=== PATIENT | female | born 1935 | race African-American/Black ===

== ENCOUNTER 2017-04-18 10:18 | Observation (INO) ==
[2017-04-18] MEDS ORDERED: ASPIRIN 325 MG TABLET PO STA ×2 (10:53→16:27)
[2017-04-18] MEDS ORDERED: ENOXAPARIN 100 MG/ML SYRINGE SUBCUT STA (10:53)
[2017-04-18] MEDS ORDERED: ASPIRIN 325 MG TABLET ONE (11:26)
[2017-04-18] MEDS ORDERED: ENOXAPARIN 80 MG/0.8 ML SYRINGE SUBCUT ONE (11:26)
[2017-04-18 11:40] LABS: Basophils # 0.1 10*3/uL (0.0-0.2); Eosinophils % 0.8 % (0.00-10.9); Hematocrit 41.5 VOL% (35.7-47.0); Immature Granulocytes % 0.2 %; Immature Granulocytes Absolute 0.01 #; Lymphocytes # 1.4 10*3/uL (1.4-4.0); Lymphocytes % 29.5 % (21.3-54.2); Mean Corpuscular HGB Conc 33.7 GM/DL (32-36); Mean Corpuscular Hemoglobin 27 PG (27-34); Mean Corpuscular Volume 79.5 FL (87-102); Mean Platelet Volume 12.1 FL (9.6-12.0); Monocytes # 0.5 10*3/uL (0.11-0.8); Monocytes % 10.6 % (1.7-12.7); Neutrophils # 2.8 10*3/uL (1.4-7.4); Neutrophils % 57.9 % (38.7-73.9); Platelet Count 180 T/CUMM (130-400); Red Blood Count 5.22 MC/CUMM (3.8-5.5); Red Cell Distribution Width 14.6 % (9.3-17.3); White Blood Count 4.8 T/CUMM (4-12)
[2017-04-18 12:05] LABS: Albumin 4.1 G/DL (3.4-5.0); Bilirubin,Total 0.8 MG/DL (0.2-1.0); Calcium 10.2 MG/DL (8.5-10.1); Osmolality,Calculated 280.3 MOS/KG (273-304); Potassium 3.7 MMOL/L (3.5-5.1); Total Protein 7.8 G/DL (6.4-8.3)
[2017-04-18] MEDS ORDERED: METOPROLOL SUCCINATE XL 25 MG TABLET PO PRN (16:27)
[2017-04-18] MEDS ORDERED: FUROSEMIDE 40 MG TABLET PO PRN (16:27)
[2017-04-18] MEDS ORDERED: NITROGLYCERIN SL 0.4 MG TABLET SL PRN (16:27)
[2017-04-18] MEDS ORDERED: POTASSIUM CHLORIDE 10 MEQ TABLET PO SCH (16:27)
[2017-04-18] MEDS: PANTOPRAZOLE 40 MG TABLET PO SCH (18:03)
[2017-04-18] MEDS: MONTELUKAST 10 MG TABLET PO SCH (22:11)
[2017-04-19 07:57] LABS: Calcium 9.6 MG/DL (8.5-10.1); Potassium 3.8 MMOL/L (3.5-5.1); Risk Ratio 2.36; VLDL CHOLESTEROL 16.2 MG/DL
[2017-04-19] MEDS ORDERED: PRAVASTATIN 40 MG TABLET PO SCH ×2 (09:00→21:00)
[2017-04-19] MEDS: CHOLECALCIFEROL 1,000 UNIT TABLET PO SCH (09:22)
[2017-04-19] MEDS: LOSARTAN 50 MG TABLET PO SCH (09:22)
[2017-04-19] MEDS: ASPIRIN EC 325 MG TABLET PO SCH ×2 (09:24→09:30)
[2017-04-19] MEDS: PANTOPRAZOLE 40 MG TABLET PO SCH (09:24)
[2017-04-19] MEDS: CYANOCOBALAMIN 100 MCG TABLET PO SCH (09:25)
[2017-04-19] MEDS: hydroCHLOROthiazide 12.5 MG CAPSULE PO SCH (09:27)
[2017-04-19] MEDS ORDERED: POTASSIUM CHLORIDE RIDER 10 MEQ in PREMIX 1 EACH IV PRN (11:12)
[2017-04-19] MEDS ORDERED: DIAZEPAM 5 MG TABLET PO ONE (11:12)
[2017-04-19] MEDS ORDERED: diphenhydrAMINE CAP 25 MG CAPSULE PO ONE (11:12)
[2017-04-19] MEDS ORDERED: MAGNESIUM SULF RIDER 2 GM in PREMIX 1 EACH IV PRN (11:12)
[2017-04-19] MEDS ORDERED: HEPARIN/NACL 0.9% 2 UNITS/ML 2,000 ML IV ONE (11:23)
[2017-04-19] MEDS ORDERED: LIDOCAINE 2%/EPI 20 ML VIAL ONE (11:23)
[2017-04-19] MEDS ORDERED: SODIUM CHLORIDE 0.45% 1,000 ML IV SCH (11:30)
[2017-04-19] MEDS ORDERED: MIDAZOLAM 2 MG/2 ML VIAL ONE (12:45)
[2017-04-19] MEDS ORDERED: fentaNYL 100 MCG/2 ML VIAL ONE (12:46)
[2017-04-19] MEDS: MONTELUKAST 10 MG TABLET PO SCH (21:36)
[2017-04-20 08:08] VITALS: BP 95/47
[2017-04-20] MEDS: PANTOPRAZOLE 40 MG TABLET PO SCH (09:35)
[2017-04-20] MEDS: LOSARTAN 50 MG TABLET PO SCH (09:35)
[2017-04-20] MEDS: CHOLECALCIFEROL 1,000 UNIT TABLET PO SCH (09:35)
[2017-04-20] MEDS: ASPIRIN EC 325 MG TABLET PO SCH (09:35)
[2017-04-20] MEDS: hydroCHLOROthiazide 12.5 MG CAPSULE PO SCH (09:36)
[2017-04-20] MEDS: CYANOCOBALAMIN 100 MCG TABLET PO SCH (09:36)
== END 2017-04-20 10:40 | disposition home or self-care (01) ==
LOC: N.ED 10:18 → N.EDINP 10:18 → SUATTDRO 13:48 → N.TELEN 16:23
PROVIDERS: ADMIT Internal Medicine Infectious Disease; ATTEND Internal Medicine
PROC: CLCCHCL (ICD-10-PCS; 2017-04-19 13:15)

== ENCOUNTER 2018-04-18 05:43 | Inpatient (IN) ==
[2018-04-11 10:40] LABS: Basophils # 0.1 10*3/uL (0.0-0.2); Basophils % 1.4 % (0.0-0.8); Eosinophils # 0.1 10*3/uL (0.0-0.87); Eosinophils % 2.8 % (0.00-10.9); Hematocrit 37.9 VOL% (35.7-47.0); Hemoglobin 12.3 GM/DL (12.0-16.0); Immature Granulocytes % 0.2 %; Immature Granulocytes Absolute 0.01 #; Lymphocytes # 1.5 10*3/uL (1.4-4.0); Lymphocytes % 34.3 % (21.3-54.2); Mean Corpuscular HGB Conc 32.5 GM/DL (32-36); Mean Corpuscular Hemoglobin 27 PG (27-34); Mean Corpuscular Volume 82.2 FL (87-102); Mean Platelet Volume 12.1 FL (9.6-12.0); Monocytes # 0.6 10*3/uL (0.11-0.8); Monocytes % 12.6 % (1.7-12.7); Neutrophils # 2.1 10*3/uL (1.4-7.4); Neutrophils % 48.7 % (38.7-73.9); Platelet Count 143 T/CUMM (130-400); Red Blood Count 4.61 MC/CUMM (3.8-5.5); Red Cell Distribution Width 14.4 % (9.3-17.3); White Blood Count 4.4 T/CUMM (4-12)
[2018-04-11 10:54] LABS: Amorphous Crystals,Urine Occasional /HPF (Few); Apearance,Urine CLEAR (Clear); Bilirubin,Urine Negative (Negative); Blood, Urine Negative (Negative); Glucose,Urine (UA) Negative (Negative); Ketones,Urine Negative (Negative); Mucus,Urine Occasional /LPF (Occasional); Nitrite,Urine Negative (Negative); Protein,Urine Negative; RBC,Urine 1 /HPF (0-4); Squamous Epithelial Cell,Urine Occasional /HPF (0-10); Urine Color Yellow (Yellow); Urine Specific Gravity 1.014 (1.001-1.035); Urine Urobilinogen < 2.0 EU/DL (0.2-1.0); WBC,Urine 15 /HPF (0-6)
[2018-04-11 10:56] LABS: PT Patient Result 10.7 SECS; Partial Thromboplastin Time 27.3 SECS (0-40)
[2018-04-11 11:08] LABS: Albumin 3.6 G/DL (3.4-5.0); Bilirubin,Total 0.4 MG/DL (0.2-1.0); Calcium 9.4 MG/DL (8.5-10.1); Osmolality,Calculated 282.1 MOS/KG (273-304); Potassium 4.4 MMOL/L (3.5-5.1); Total Protein 7.4 G/DL (6.4-8.3)
[2018-04-18] MEDS ORDERED: BACITRACIN OINT 0.9 GM PACK TOP ONE (06:44)
[2018-04-18] MEDS ORDERED: VANCOMYCIN INJ 1,000 MG in SODIUM CHLORIDE 0.9% 250 ML IV ONE (06:51)
[2018-04-18] MEDS ORDERED: CLINDAMYCIN INJ 900 MG in PREMIX 1 EACH IV ONE (06:51)
[2018-04-18] MEDS ORDERED: LACTATED RINGERS 1,000 ML IV SCH (07:00)
[2018-04-18] MEDS ORDERED: BUPIVACAINE 0.5% 50 ML VIAL ONE (07:07)
[2018-04-18] MEDS ORDERED: CLINDAMYCIN INJ 50 ML IV ONE (07:13)
[2018-04-18] MEDS ORDERED: VANCOMYCIN 1,000 MG VIAL ONE (07:13)
[2018-04-18] MEDS ORDERED: TRANEXAMIC ACID 1,000 MG/10 ML VIAL ONE (07:17)
[2018-04-18] MEDS ORDERED: BUPIVACAINE SPINAL 0.75% 2 ML AMP SPINAL ONE (07:18)
[2018-04-18] MEDS ORDERED: FUROSEMIDE 40 MG TABLET PO PRN (09:26)
[2018-04-18] MEDS ORDERED: PANTOPRAZOLE 40 MG TABLET PO PRN (09:26)
[2018-04-18] MEDS ORDERED: MORPHINE 4 MG/1 ML VIAL IV PRN ×2 (09:27)
[2018-04-18] MEDS ORDERED: oxyCODONE IR 5 MG TABLET PO PRN ×2 (09:27)
[2018-04-18] MEDS ORDERED: ZALEPLON 5 MG CAPSULE PO PRN (09:27)
[2018-04-18] MEDS ORDERED: diphenhydrAMINE CAP 25 MG CAPSULE PO PRN (09:27)
[2018-04-18] MEDS ORDERED: ONDANSETRON 4 MG/2 ML VIAL IV PRN (09:27)
[2018-04-18] MEDS ORDERED: MAGNESIUM HYDROXIDE SUSP 30 ML UDCUP PO PRN (09:27)
[2018-04-18] MEDS ORDERED: ACETAMINOPHEN 1,000 MG/100 ML VIAL IV ONE (10:05)
[2018-04-18] MEDS ORDERED: ePHEDrine 50 MG/ML AMP ONE (10:41)
[2018-04-18] MEDS ORDERED: MIDAZOLAM 2 MG/2 ML VIAL ONE (10:42)
[2018-04-18] MEDS ORDERED: PROPOFOL 200 MG/20 ML VIAL IV ONE (10:43)
[2018-04-18] MEDS ORDERED: SODIUM CHLORIDE 0.9% 200 ML IV ONE (10:43)
[2018-04-18] MEDS ORDERED: LACTATED RINGERS 1,000 ML IV ONE (10:43)
[2018-04-18] MEDS ORDERED: SODIUM CHLORIDE 0.9% 250 ML IV ONE (10:43)
[2018-04-18] MEDS ORDERED: fentaNYL 100 MCG/2 ML VIAL ONE (10:43)
[2018-04-18 11:00] LABS: Apearance,Urine CLEAR (Clear); Bilirubin,Urine Negative (Negative); Blood, Urine Negative (Negative); Glucose,Urine (UA) Negative (Negative); Ketones,Urine Negative (Negative); Mucus,Urine Occasional /LPF (Occasional); Nitrite,Urine Negative (Negative); Protein,Urine Negative; RBC,Urine 1 /HPF (0-4); Squamous Epithelial Cell,Urine Occasional /HPF (0-10); Urine Color Colorless (Yellow); Urine Specific Gravity 1.008 (1.001-1.035); Urine Urobilinogen < 2.0 EU/DL (0.2-1.0); WBC,Urine <1 /HPF (0-6)
[2018-04-18] MEDS: POTASSIUM CHLORIDE INJ 20 MEQ in LACTATED RINGERS 1,000 ML IV SCH ×2 (13:15→21:19)
[2018-04-18] MEDS: KETOROLAC 15 MG/1 ML VIAL IV SCH ×2 (13:15→18:25)
[2018-04-18] MEDS: CLINDAMYCIN INJ 900 MG in PREMIX 1 EACH IV SCH ×2 (13:16→21:18)
[2018-04-18] MEDS: ACETAMINOPHEN 500 MG TABLET PO SCH ×2 (13:16→18:27)
[2018-04-18] MEDS: CARVEDILOL 6.25 MG TABLET PO SCH (18:25)
[2018-04-18] MEDS: SIMVASTATIN 20 MG TABLET PO SCH (20:11)
[2018-04-18] MEDS: ASCORBIC ACID 500 MG TABLET PO SCH (20:12)
[2018-04-18] MEDS: DOCUSATE SODIUM 100 MG CAPSULE PO SCH (20:12)
[2018-04-18] MEDS: MONTELUKAST 10 MG TABLET PO SCH (20:12)
[2018-04-19] MEDS: ACETAMINOPHEN 500 MG TABLET PO SCH ×2 (00:28→08:45)
[2018-04-19] MEDS: KETOROLAC 15 MG/1 ML VIAL IV SCH ×2 (00:29→05:41)
[2018-04-19] MEDS: FONDAPARINUX 2.5 MG/0.5 ML SYRINGE SUBCUT SCH (05:39)
[2018-04-19] MEDS: POTASSIUM CHLORIDE INJ 20 MEQ in LACTATED RINGERS 1,000 ML IV SCH (05:46)
[2018-04-19 05:55] LABS: Basophils % 0.6 % (0.0-0.8); Eosinophils # 0.1 10*3/uL (0.0-0.87); Eosinophils % 2.2 % (0.00-10.9); Hematocrit 29.9 VOL% (35.7-47.0); Hemoglobin 9.4 GM/DL (12.0-16.0); Immature Granulocytes % 0.4 %; Immature Granulocytes Absolute 0.02 #; Lymphocytes # 1.1 10*3/uL (1.4-4.0); Lymphocytes % 22.6 % (21.3-54.2); Mean Corpuscular HGB Conc 31.4 GM/DL (32-36); Mean Corpuscular Hemoglobin 26 PG (27-34); Mean Corpuscular Volume 82.8 FL (87-102); Monocytes # 0.5 10*3/uL (0.11-0.8); Monocytes % 9.7 % (1.7-12.7); Neutrophils # 3.3 10*3/uL (1.4-7.4); Neutrophils % 64.5 % (38.7-73.9); Platelet Count 108 T/CUMM (130-400); Red Blood Count 3.61 MC/CUMM (3.8-5.5); Red Cell Distribution Width 14.3 % (9.3-17.3)
[2018-04-19 06:29] LABS: Calcium 8.4 MG/DL (8.5-10.1); Osmolality,Calculated 287.8 MOS/KG (273-304); Potassium 4.6 MMOL/L (3.5-5.1)
[2018-04-19] MEDS: ASCORBIC ACID 500 MG TABLET PO SCH ×2 (08:45→21:02)
[2018-04-19] MEDS: CARVEDILOL 6.25 MG TABLET PO SCH ×2 (08:45→17:18)
[2018-04-19] MEDS: CYANOCOBALAMIN 100 MCG TABLET PO SCH (08:45)
[2018-04-19] MEDS: DOCUSATE SODIUM 100 MG CAPSULE PO SCH ×2 (08:45→21:02)
[2018-04-19] MEDS: CHOLECALCIFEROL 5,000 UNIT TABLET PO SCH (08:46)
[2018-04-19] MEDS: ESCITALOPRAM 10 MG TABLET PO SCH (08:46)
[2018-04-19] MEDS: OLMESARTAN 20 MG TABLET PO SCH (08:46)
[2018-04-19] MEDS: POTASSIUM CHLORIDE 10 MEQ TABLET PO SCH (08:46)
[2018-04-19] MEDS: MONTELUKAST 10 MG TABLET PO SCH (21:03)
[2018-04-19] MEDS: SIMVASTATIN 20 MG TABLET PO SCH (21:03)
[2018-04-20 05:05] LABS: Basophils # 0.1 10*3/uL (0.0-0.2); Basophils % 0.7 % (0.0-0.8); Eosinophils # 0.1 10*3/uL (0.0-0.87); Eosinophils % 1.6 % (0.00-10.9); Hematocrit 29.7 VOL% (35.7-47.0); Hemoglobin 9.7 GM/DL (12.0-16.0); Immature Granulocytes % 0.7 %; Immature Granulocytes Absolute 0.05 #; Lymphocytes # 1.3 10*3/uL (1.4-4.0); Mean Corpuscular HGB Conc 32.7 GM/DL (32-36); Mean Corpuscular Hemoglobin 26 PG (27-34); Mean Corpuscular Volume 80.9 FL (87-102); Mean Platelet Volume 12.7 FL (9.6-12.0); Monocytes # 0.8 10*3/uL (0.11-0.8); Monocytes % 10.6 % (1.7-12.7); NRBC # 0.02 10*3/uL; Neutrophils # 4.8 10*3/uL (1.4-7.4); Neutrophils % 67.4 % (38.7-73.9); Platelet Count 111 T/CUMM (130-400); Red Blood Count 3.67 MC/CUMM (3.8-5.5); Red Cell Distribution Width 14.4 % (9.3-17.3); White Blood Count 7.1 T/CUMM (4-12)
[2018-04-20] MEDS: FONDAPARINUX 2.5 MG/0.5 ML SYRINGE SUBCUT SCH (05:29)
[2018-04-20] MEDS: ASCORBIC ACID 500 MG TABLET PO SCH ×2 (08:17→20:09)
[2018-04-20] MEDS: DOCUSATE SODIUM 100 MG CAPSULE PO SCH ×2 (08:17→20:09)
[2018-04-20] MEDS: CYANOCOBALAMIN 100 MCG TABLET PO SCH (08:17)
[2018-04-20] MEDS: OLMESARTAN 20 MG TABLET PO SCH (08:17)
[2018-04-20] MEDS: CARVEDILOL 6.25 MG TABLET PO SCH ×2 (08:17→17:32)
[2018-04-20] MEDS: CHOLECALCIFEROL 5,000 UNIT TABLET PO SCH (08:17)
[2018-04-20] MEDS: ESCITALOPRAM 10 MG TABLET PO SCH (08:18)
[2018-04-20] MEDS: SIMVASTATIN 20 MG TABLET PO SCH (20:09)
[2018-04-20] MEDS: MONTELUKAST 10 MG TABLET PO SCH (20:09)
[2018-04-21] MEDS: FONDAPARINUX 2.5 MG/0.5 ML SYRINGE SUBCUT SCH (04:28)
[2018-04-21 05:48] LABS: Basophils # 0.1 10*3/uL (0.0-0.2); Basophils % 0.7 % (0.0-0.8); Eosinophils # 0.2 10*3/uL (0.0-0.87); Hematocrit 28.4 VOL% (35.7-47.0); Hemoglobin 9.3 GM/DL (12.0-16.0); Immature Granulocytes % 0.5 %; Immature Granulocytes Absolute 0.04 #; Lymphocytes # 1.4 10*3/uL (1.4-4.0); Lymphocytes % 18.9 % (21.3-54.2); Mean Corpuscular HGB Conc 32.7 GM/DL (32-36); Mean Corpuscular Hemoglobin 27 PG (27-34); Mean Corpuscular Volume 81.6 FL (87-102); Mean Platelet Volume 13.6 FL (9.6-12.0); Monocytes # 1.1 10*3/uL (0.11-0.8); Monocytes % 15.2 % (1.7-12.7); Neutrophils # 4.6 10*3/uL (1.4-7.4); Neutrophils % 62.7 % (38.7-73.9); Red Blood Count 3.48 MC/CUMM (3.8-5.5); Red Cell Distribution Width 14.6 % (9.3-17.3); White Blood Count 7.4 T/CUMM (4-12)
[2018-04-21 05:58] LABS: Platelet Count 49 T/CUMM (130-400)
[2018-04-21] MEDS: CYANOCOBALAMIN 100 MCG TABLET PO SCH (09:22)
[2018-04-21] MEDS: CARVEDILOL 6.25 MG TABLET PO SCH (09:22)
[2018-04-21] MEDS: POTASSIUM CHLORIDE 10 MEQ TABLET PO SCH (09:23)
[2018-04-21] MEDS: CHOLECALCIFEROL 5,000 UNIT TABLET PO SCH (09:23)
[2018-04-21] MEDS: DOCUSATE SODIUM 100 MG CAPSULE PO SCH (09:23)
[2018-04-21] MEDS: OLMESARTAN 20 MG TABLET PO SCH (09:23)
[2018-04-21] MEDS: ASCORBIC ACID 500 MG TABLET PO SCH (09:23)
[2018-04-21] MEDS: ESCITALOPRAM 10 MG TABLET PO SCH (09:23)
[2018-04-21 12:03] VITALS: BP 122/58
== END 2018-04-21 13:15 | disposition home health service (06) | DRG 470 ==
LOC: N.SDSINP 05:43 → N.3E 11:25
PROVIDERS: ADMIT Orthopaedic Surgery; ATTEND Orthopaedic Surgery